=== PATIENT | male | born 1990 | race African-American/Black ===

== ENCOUNTER 2017-07-20 19:25 | Emergency (ER) | payer OTHER ==
[~2017-07-20] VITALS: Ht 190.5 cm; Wt 127.3 kg
[~2017-07-20 19:25] MED LIST: DIVA500T52 PO; RISP4 PO
[2017-07-20 20:11] VITALS: BP 128/78
[2017-07-20] MEDS ORDERED: IBUPROFEN 800 MG TABLET PO ONE (20:15)
[2017-07-20] MEDS ORDERED: LIDOCAINE HCL 1% 10 ML VIAL INJ ONE (20:15)
[2017-07-20] MEDS ORDERED: PERTUSS(ACELL),DIPH,TET VAC/PF 0.5 ML VIAL IM ONE (20:15)
[2017-07-20] MEDS ORDERED: POVIDONE-IODINE 10% 15 ML SOLUTION UD TP ONE (20:15)
[2017-07-20] MEDS ORDERED: BACITRACIN 0.9 GM PACKET OINTMENT TP ONE (21:00)
== END 2017-07-20 20:56 | disposition home or self-care (01) ==
LOC: EMS 19:26
DX: S01.81XA Laceration without foreign body of other part of head, initial encounter (principal); W01.198A Fall on same level from slipping, tripping and stumbling with subsequent striking against other object, initial encounter; Y93.89 Activity, other specified; Y92.89 Other specified places as the place of occurrence of the external cause; Y99.8 Other external cause status
CPT/HCPCS: 12011; 90471; 90715; 99283; J3490

== ENCOUNTER 2017-07-26 13:11 | Emergency (ER) | payer OTHER ==
[~2017-07-26] VITALS: Ht 182.9 cm; Wt 104.5 kg
[2017-07-26 13:23] VITALS: BP 134/71
== END 2017-07-26 14:39 | disposition home or self-care (01) ==
LOC: EMS 13:12
DX: Z48.02 Encounter for removal of sutures (principal)
CPT/HCPCS: 99281